=== PATIENT | male | born 2000 | race Caucasian/White ===

== ENCOUNTER 2024-01-29 19:38 | Emergency (ER) | payer SELFPAY ==
[~2024-01-29] VITALS: Ht 177.8 cm; Wt 79.8 kg
[2024-01-29 19:39] VITALS: BP 140/81; PULSE 84; RESP 16; TEMP 98.5; O2SAT 98
[2024-01-29] MEDS ORDERED: KEN.1O TP (20:38)
[2024-01-29 20:40] VITALS: BP 140/81; PULSE 84; RESP 16; TEMP 98.5; O2SAT 98
[2024-01-29] MEDS: FAMOTIDINE 20 MG TAB PO ONE (20:46)
[2024-01-29] MEDS: DEXAMETHASONE 10 MG/ML VIAL PO ONE (20:46)
== END 2024-01-29 20:50 | disposition home or self-care (01) ==
LOC: MED 19:38
DX: L30.1 Dyshidrosis [pompholyx] (principal); Z79.899 Other long term (current) drug therapy; Z88.0 Allergy status to penicillin
CPT/HCPCS: 99283; J1100